=== PATIENT | female | born 1940 | race Caucasian/White ===

== ENCOUNTER → 2017-05-02 | Outpatient (CLI) | payer MEDICARE, OTHER ==
[~2017-05-02] MED LIST: ASPIRIN (CHILDR81 MG PO; CALCIUM 600 +1 EAC3 PO; LIPITOR40 MG PO; OCUVITE EYE +1 EACH PO; PROLIA60 MG/ML SUB-Q
== END ==
LOC: LGSMG 17:15
DX: N39.0 Urinary tract infection, site not specified (principal)

== ENCOUNTER → 2017-05-19 | Outpatient (CLI) | payer MEDICARE, OTHER | END | disposition disaster alternative care site (69) | LOC: GRAD 09:28 | DX: R51 Headache (principal) ==